=== PATIENT | female | born 1990 ===

== ENCOUNTER 2024-10-19 22:48 | Inpatient (IN) ==
[2024-10-20] MEDS ORDERED: OXYTOCIN 30 UNITS/NSS 30 UNITS/500 ML BAG IV PRN ×2 (00:12→03:54)
--- NOTE | 2024-10-20 00:20 | History & Physical Report ---
Date of Service October 20, 2024 Assessment & Plan (1) Active labor: Plan: 34 yo G1 at term presents after failed home for IV fluids and pitocin VSS Fetus cat 1 labor - molding not really noted on exam. discussed obtaining pnl given that we are unable to obtain them from [facility] and she is agreeable to this, we do have neg gbs. Is agreeable to IV and pitocin, discussed fluid shortage. Discussed continuous monitoring if going on pitocin and she is also agreeable. Discussed different pushing positions as long as baby tolerates and that seem to be most effective, verbalized understanding. Did review concern that if she has not delivered at this point, it is possible baby is too big for her pelvis but at this stage in labor is difficult to tell. Discussed if pushing effectively and still unable to deliver, may be recommending CS or sooner if indicated by status. Pt verbalized understanding. Reviewed hemorrhage risk, potential need for blood transfusion and she accepts if in emergency situation. GBS neg History of Present Illness Chief Complaint: labor at home Primary Care Provider: NO PCP 34yo G1 at 40w3d w/ reported TIP 10/17/24 by conception date presents to L&D for evaluation due to prolonged labor at home. Has been following with [facility] for pnc. Reports SROM 10/18 at 11am with onset of ctx at that point, irreg. Around 2am 10/19, became every 5minutes and contacted her [facility]. They report she became complete and started pushing at 430pm 10/19 however was not pushing effectively despite trying multiple positions. Around 6pm, ctx seemed to space to about every 7min. Around 10pm they decided that due to fatigue/dehydration and still without delivery that they should present for evaluation. On arrival, +FM; and ctx q7min. Continues to leak pink tinged clear fluid, denies vb. Denies fevers, chills -Reports having normal pnl including neg gdm screening however not seen on records from [facility] and she says they are not showing up on [facility] appropriately. Does have normal cbc and neg gbs in record -Reports LMP 3/7 which would make her 39w4d if using period. Reports very regular q28d cycles, like clockwork. Declined all ultrasounds during but reports appropriate fundal heights throughout -denies hx STIs, reports last pap 2018 Allergies Allergy/AdvReac Type Severity Reaction Status Date / Time gluten Allergy Difficulty Verified 10/20/24 00:30 Breathing Home Medications Medication Instructions Recorded Confirmed Type cholecalciferol (vitamin D3) 125 125 mcg PO DAILY 10/20/24 10/20/24 History mcg (5,000 unit) tablet (Vitamin D3) niacinamide 250 mg tablet 2 tab PO DAILY 10/20/24 10/20/24 History pren vit comb.1-iron cb-FA-DSS 90 1 tab PO DAILY 10/20/24 10/20/24 History mg-1 mg-50 mg tablet Patient History Social History Smoking Status: Never smoker Hx Alcohol Use: No Hx Substance Use: No Preferred Language: Setswana Certified Peer Specialist Required: No Beliefs That Will Affect Care: None marital status: Current Living Situation: Spouse Other Information That Helps Us Care for You: No Physical Exam Genitourinary: OB Exam Abdomen: + vertex Manual OB Exam: + cervical dilation 10 cm, + cervical effacement 100% and + station + 1 OB Exam Monitor Tracing: + external FHT monitor used, + external uterine monitor used (q6-7) and + category I (150/mod/+accel/-decel) Results & Data Vital Signs (Past 12 Hours) Vital Signs Temp Pulse Resp BP 10/19/24 23:08 100 H 147/65 H 10/19/24 23:04 98.2 F 20 Diagnostic Findings Fundal plac on bsus Coding Level of Care Code 77708 INT INP/OBS CARE 2/55MIN Diagnoses Active labor
[2024-10-20] MEDS: SODIUM CHLORIDE 0.9% 1,000 ML IV SCH (00:30)
[2024-10-20 00:51] LABS: Hematocrit (blood only) 37.1 % (37.0-47.0); Hemoglobin 13.6 g/dl (12.0-16.0); Mean Corpuscular Hemoglobin 29.7 pg (25.0-34.0); Mean Corpuscular Hgb Conc 36.7 g/dL (32.0-36.0); Mean Platelet Volume 11.7 fL (9.4-12.4); Platelet Count 193 K/uL (130-400); RDW Coefficient of Variation 13.1 % (11.5-14.5); RDW Standard Deviation 37.5 fL (36.4-46.3); Red Blood Count 4.58 M/uL (4.20-5.40); White Blood Count 28.58 K/ul (4.8-10.8)
[2024-10-20] MEDS: OXYTOCIN 30 UNITS/NSS 30 UNITS/500 ML BAG IV PRN (01:07)
[2024-10-20 01:33] LABS: HIV 4th Gen(HIV 1,2 AB+p24 Ag Negative (Negative); Rubella IgG Ab Immune (Immune)
[2024-10-20 01:45] LABS: Hep C Ab Rflx HepCQuant RNA Negative (Negative)
[2024-10-20 01:49] LABS: Hepatitis B Surface Antibody Non-Immune
[2024-10-20] MEDS: LIDOCAINE 1% LOCAL 20 ML VIAL INFIL PRN (03:25)
--- NOTE | 2024-10-20 03:48 | Delivery Summary ---
Vaginal Delivery Summary Date of Service October 20, 2024 Vaginal Delivery Summary and 2nd Degree LAC PREOPERATIVE DIAGNOSIS: 1. Single intrauterine at 40 3/7 wga 2. Labor 3. Attempted home POSTOPERATIVE DIAGNOSIS: 1. Single intrauterine at 40 3/7 wga 2. Labor 3. Attempted home 4. Shoulder dystocia 5. Delivered PROCEDURE: 1. Normal spontaneous vaginal delivery. SURGEON: Fatuma Gonsalves MD ANESTHESIA: Local QUANTITATIVE BLOOD LOSS: 668 mL FLUIDS: Continuous LR. URINE OUTPUT: None. CONDITION: Stable. INDICATIONS: 34 yo G1 presented after attempting home , getting to complete and was not able to push. IV was placed and pitocin started. She felt more pressure and desired to push. FINDINGS: A viable female , weight pending with Apgars of 7 and 9 at 1 and 5 minutes respectively. SPECIMEN: Cord blood, cord gases OPERATIVE REPORT: The patient progressed to 10 cm, 100% effaced and +2 station, pushed over intact perineum with anesthesia to deliver a viable female infant, weight and Apgars as above. Head of delivered in ARISTIDES position. Nuchal cord could not be delivered. Shoulder did not deliver with gentle downward traction and shoulder dystocia was called. McRobert's maneuver and suprapubic pressure did not relieve shoulder dystocia. Posterior arm was then delivered and remainder of shoulder and body delivered spontaneously. Total shoulder dystocia 90 seconds. Delayed cord clamping was deferred due to infant not being initially vigorous so cord was clamped and cut. was handed off to awaiting nursery staff. Cord segment and blood were obtained. Placenta delivered spontaneously intact with 3-vessel cord. IV oxytocin and fundal massage were given for excellent hemostasis. Vagina, cervix, perineum, and placenta were inspected. A second degree laceration was repaired using 3-0 vicry l. There was excellent hemostasis. Periclitoral abrasion was hemostatic but did not need repaired. Sponge and needle counts correct x2. No sponges were left behind. Mother and stable in immediate period. Delivery events reviewed, questions answered to apparent satisfaction. [facility] [place] Vaginal Delivery Charge Vaginal Delivery Codes: 78030 global code for the antepartum, delivery, and post- Delivery Type Details: and 2nd Degree LAC
[2024-10-20] MEDS ORDERED: HYDROCORTISONE ACETATE 25 MG SUPP PR PRN (03:54)
[2024-10-20] MEDS ORDERED: BENZOCAINE 20% SPRY 85 APPLN/85 GM CAN EXT PRN (03:54)
[2024-10-20] MEDS ORDERED: ACETAMINOPHEN 325 MG TAB PO PRN (03:54)
[2024-10-20] MEDS ORDERED: IBUPROFEN 600 MG TAB PO PRN (03:54)
[2024-10-20] MEDS ORDERED: bisacodyL 10 MG SUPP PR PRN (03:54)
[2024-10-20] MEDS: FERROUS SULFATE 325 MG TAB PO SCH (08:28)
[2024-10-20] MEDS: DOCUSATE SODIUM 100 MG CAP PO SCH (08:28)
[2024-10-20] MEDS: PRENATAL VITAMIN 1 TAB PO SCH (08:28)
[2024-10-20] MEDS: DIPHTHER/TETAN/PERTUS Vaccine (Tdap, Adol/Adult) 0.5mL IM ONE (08:45)
[2024-10-20 11:12] LABS: Hepatitis B Surface Ab Quant 3.48 mIU/mL (>or=10mIU/mL Immune)
[2024-10-20 12:01] LABS: Chlamydia trachomatis by NAA Not Detected (NotDetected); GC (Neis gonorrhoeae) by NAA Not Detected (NotDetected)
--- NOTE | 2024-10-21 08:16 | Obstetrical Progress Note ---
Date of Service October 21, 2024 Assessment & Plan (1) Encounter for care and examination after delivery: Day 1 status post vaginal delivery following attempted home . Patient doing well. Requesting discharge and stable for discharge as preferred Subjective Ambulation: ambulating normally Voiding: no voiding problems Passing Gas:: Yes Diet Tolerance:: regular diet Lochia:: Moderate Feeding Type:: breast feeding Physical Exam Constitutional WD/WN, vitals as above Respiratory normal respiratory effort; no respiratory distress and no labored breathing Cardiovascular Extremities: no calf tenderness Gastrointestinal (Abdomen) Inspection/Auscultation: abdomen normal to inspection; abdomen not distended Percussion/Palpation: abdomen soft; abdomen nontender, no guarding and abdomen not rigid Genitourinary OB Exam Abdomen: + fundal height Fundus: + firm and + relation to umbilicus (Below); not tender or not boggy Results & Data Vital Signs (Past 12 Hours) Vital Signs Temp Pulse Resp BP Pulse Ox O2 Del Method 10/21/24 03:00 36.5 C 79 18 123/72 98 Room Air 10/20/24 23:20 Room Air 10/20/24 23:20 36.6 C 78 18 112/68 98 Room Air
[2024-10-21 08:21] VITALS: PULSE 83; RESP 16; TEMP 98.1; O2SAT 99
[2024-10-21 09:52] VITALS: BP 111/72
[2024-10-21] MEDS ORDERED: bisacodyL 5 MG TABEC PO SCH (20:00)
== END 2024-10-21 15:50 | disposition home or self-care (01) | DRG 807 ==
LOC: OPB 22:48 → 4S1 22:53 → MERGE 10-20 00:13 → 4E2 10-20 07:31